=== PATIENT | female | born 1970 | race Caucasian/White ===

== ENCOUNTER 2018-01-05 14:15 | Inpatient (IN) | payer OTHER ==
[2018-01-05] MEDS: ONDANSETRON 4 MG INJ IV ×3 (14:49→18:19)
[2018-01-05] MEDS: ASPIRIN 325 MG TAB PO (14:49)
[2018-01-05] MEDS: HYDROmorphONE 1 MG/ML SYG IV ×4 (14:50→20:49)
[2018-01-05] MEDS: ALBUTEROL 0.083% (NEB) 2.5 MG/3 ML AMP INH (14:58)
[2018-01-05 15:44] LABS: ADD UMIC YES; UR ASCORBIC ACID NEGATIVE (NEGATIVE); UR BACTERIA MODERATE /HPF (NONE SEEN); UR BILIRUBIN (Dip) NEGATIVE (NEGATIVE); UR BLOOD (Dip) 1+ mg/dL (NEGATIVE); UR CLARITY CLOUDY (CLEAR); UR COLOR YELLOW (YELLOW); UR GLUCOSE (Dip) NEGATIVE (NEGATIVE); UR KETONES (Dip) NEGATIVE (NEGATIVE); UR LEUKOCYTE ESTERASE (Dip) TRACE Leu/ul (NEGATIVE); UR MUCUS FEW /HPF (NONE SEEN); UR NITRITE (Dip) NEGATIVE (NEGATIVE); UR RBC 7 /HPF (0-5); UR SPECIFIC GRAVITY (Dip) 1.015 (1.003-1.030); UR SQUAMOUS EPITHELIAL CELL FEW /HPF (FEW); UR TOTAL PROTEIN (Dip) NEGATIVE (NEGATIVE); UR UROBILINOGEN (Dip) 2+ mg/dL (NEGATIVE); UR WBC 4 /HPF (0-5)
[2018-01-05 15:52] LABS: ADD MAN DIFF? NO
[2018-01-05 15:55] LABS: BASOPHILS % 0.3 % (0.0-2.0); EOSINOPHILS # 0.1 10^3/ul (0.0-0.5); EOSINOPHILS % 0.7 % (0.0-7.0); HEMATOCRIT 24.9 % (37.0-47.0); HEMOGLOBIN 7.7 g/dl (12.0-16.0); LYMPHOCYTES # 1.1 10^3/ul (0.8-2.9); LYMPHOCYTES % 9.5 % (15.0-51.0); MEAN CORPUSCULAR HEMOGLOBIN 28.1 pg (29.0-33.0); MEAN CORPUSCULAR HGB CONC 30.9 g/dl (32.0-37.0); MEAN CORPUSCULAR VOLUME 90.9 fl (82.0-101.0); MEAN PLATELET VOLUME 10.6 fl (7.4-10.4); MONOCYTE # 0.1 10^3/ul (0.3-0.9); MONOCYTES % 1.2 % (0.0-11.0); NEUTROPHIL # 9.8 10^3/ul (1.6-7.5); NEUTROPHILS % 86.9 % (39.0-77.0); PLATELET COUNT 219 10^3/UL (140-415); RED BLOOD COUNT 2.74 10^6/ul (4.20-5.40); RED CELL DISTRIBUTION WIDTH 16.9 % (11.5-14.5)
[2018-01-05 15:55] LABS: WHITE BLOOD COUNT 11.3 10^3/ul (4.8-10.8)
[2018-01-05 16:18] LABS: ALANINE AMINOTRANSFERASE 23 IU/L (13-69); ALBUMIN/GLOBULIN RATIO 0.75; ALKALINE PHOSPHATASE 122 IU/L (42-121); ANION GAP 12 (8-16); ASPARTATE AMINO TRANSFERASE 29 IU/L (15-46); BILIRUBIN,INDIRECT 0.1 mg/dl (0-1.1); BILIRUBIN,TOTAL 0.1 mg/dl (0.2-1.3); BLOOD UREA NITROGEN 96 mg/dl (7-20); CARBON DIOXIDE 28 mmol/L (21-31); CHLORIDE 104 mmol/L (97-110); CREATININE 1.33 mg/dl (0.44-1.00); GLUCOSE 51 mg/dl (70-220); SODIUM 138 mmol/L (135-144)
[2018-01-05 16:27] LABS: B-TYPE NATRIURETIC PEPTIDE 475 PG/ML (0-125)
[2018-01-05 16:32] LABS: INR 1.18; PARTIAL THROMBOPLASTIN TIME 28.7 Sec (25.0-35.0); PROTIME 15.2 Sec (11.9-14.9); PT RATIO 1.2
[2018-01-05 16:35] LABS: TROPONIN-I < 0.012 ng/ml (0.00-0.12)
[2018-01-05 16:39] LABS: POTASSIUM 6.3 mmol/L (3.5-5.1)
[2018-01-05 17:02] LABS: D-DIMER 4198.41 ng/ml (<460)
[2018-01-05 18:20] LABS: POTASSIUM 6.2 mmol/L (3.5-5.1)
[2018-01-05] MEDS: NA POLYST SULFON 15 GM/60 ML BTL PO (18:27)
[2018-01-05] MEDS: SOD CHLORIDE 0.9% 100 ML (18:27)
[2018-01-05] MEDS: IODIXANOL LOCM 100 ML BTL (18:27)
[2018-01-05] MEDS: SOD CHLORIDE 0.9% 500 ML IV (18:27)
[2018-01-05] MEDS ORDERED: ONDANSETRON 4 MG INJ IV ×2 (19:00→21:00)
[2018-01-05] MEDS: SOD CHLORIDE 0.9% 1,000 ML IV ×2 (19:09→20:00)
[2018-01-05] MEDS: NA BICARBONATE 8.4% 50 ML SYG IV (19:13)
[2018-01-05] MEDS: DEXTROSE 50% 50 ML SYRINGE IV (19:13)
[2018-01-05] MEDS: INSULIN REGULAR, HUMAN 100 UNIT/1 ML 3ML VIAL IVP (19:14)
[2018-01-05] MEDS: SODIUM BICARBONATE (IV ADD) 100 MEQ in DEXTROSE 5% 900 ML IV (20:01)
[2018-01-05] MEDS: INSULIN ASPART [NOVOLOG] 3 ML PEN SC (21:00)
[2018-01-05] MEDS: SOD CHLORIDE 0.45% 1,000 ML IV (21:00)
[2018-01-05] MEDS ORDERED: BISACODYL (EC) 5 MG TAB PO (21:30)
[2018-01-05] MEDS: EPOETIN 10000 UNITS/ML VIAL (ONCOLOGY) SC (22:04)
[2018-01-05] MEDS: oxyCODONE 5 MG TAB PO (23:15)
[2018-01-06 00:24] LABS: ANION GAP 11 (8-16); BLOOD UREA NITROGEN 88 mg/dl (7-20); CALCIUM 8.5 mg/dl (8.4-10.2); CARBON DIOXIDE 30 mmol/L (21-31); CHLORIDE 104 mmol/L (97-110); GLUCOSE 83 mg/dl (70-220); POTASSIUM 5.7 mmol/L (3.5-5.1); SODIUM 139 mmol/L (135-144)
[2018-01-06] MEDS: HYDROmorphONE 0.5 MG/0.5 ML SYG IV ×6 (01:21→23:15)
[2018-01-06] MEDS: IPRATROPIUM (NEB) 0.5 MG/2.5 ML AMP HHN (04:47)
[2018-01-06] MEDS: ALBUTEROL/IPRATROPIUM (NEB) 3 ML AMP HHN (04:48)
[2018-01-06] MEDS: LEVOTHYROXINE 75 MCG TAB PO (07:54)
[2018-01-06] MEDS: INSULIN ASPART [NOVOLOG] 3 ML PEN SC ×4 (08:00→21:27)
[2018-01-06] MEDS ORDERED: morphine (ER) 30 MG TAB PO (09:00)
[2018-01-06] MEDS: ENOXAPARIN 30 MG/0.3 ML SYG SC (09:41)
[2018-01-06] MEDS: SALMETEROL/FLUTICASONE 250/50 INHA INH ×2 (09:41→21:26)
[2018-01-06] MEDS: SOD CHLORIDE 0.45% 1,000 ML IV (10:20)
[2018-01-06] MEDS: morphine (ER) 15 MG TAB PO ×2 (10:56→21:26)
[2018-01-06 11:27] LABS: ADD MAN DIFF? NO
[2018-01-06 11:33] LABS: BASOPHILS % 0.4 % (0.0-2.0); EOSINOPHILS # 0.1 10^3/ul (0.0-0.5); EOSINOPHILS % 0.9 % (0.0-7.0); HEMATOCRIT 25.6 % (37.0-47.0); HEMOGLOBIN 7.7 g/dl (12.0-16.0); LYMPHOCYTES # 0.8 10^3/ul (0.8-2.9); LYMPHOCYTES % 9.6 % (15.0-51.0); MEAN CORPUSCULAR HEMOGLOBIN 27.9 pg (29.0-33.0); MEAN CORPUSCULAR HGB CONC 30.1 g/dl (32.0-37.0); MEAN CORPUSCULAR VOLUME 92.8 fl (82.0-101.0); MEAN PLATELET VOLUME 10.2 fl (7.4-10.4); MONOCYTE # 0.1 10^3/ul (0.3-0.9); MONOCYTES % 1.7 % (0.0-11.0); NEUTROPHILS % 85.9 % (39.0-77.0); PLATELET COUNT 213 10^3/UL (140-415); RED BLOOD COUNT 2.76 10^6/ul (4.20-5.40); RED CELL DISTRIBUTION WIDTH 16.8 % (11.5-14.5)
[2018-01-06 11:33] LABS: WHITE BLOOD COUNT 8.2 10^3/ul (4.8-10.8)
[2018-01-06 12:02] LABS: ALANINE AMINOTRANSFERASE 19 IU/L (13-69); ALBUMIN 3.2 g/dl (3.3-4.9); ALBUMIN/GLOBULIN RATIO 0.82; ALKALINE PHOSPHATASE 124 IU/L (42-121); ANION GAP 14 (8-16); ASPARTATE AMINO TRANSFERASE 28 IU/L (15-46); BILIRUBIN,INDIRECT 0.1 mg/dl (0-1.1); BILIRUBIN,TOTAL 0.1 mg/dl (0.2-1.3); BLOOD UREA NITROGEN 79 mg/dl (7-20); CALCIUM 8.9 mg/dl (8.4-10.2); CARBON DIOXIDE 29 mmol/L (21-31); CHLORIDE 106 mmol/L (97-110); CREATININE 1.28 mg/dl (0.44-1.00); GLUCOSE 145 mg/dl (70-220); POTASSIUM 5.8 mmol/L (3.5-5.1); SODIUM 143 mmol/L (135-144); TOTAL PROTEIN 7.1 g/dl (6.1-8.1)
[2018-01-06 12:04] LABS: PHOSPHORUS 4.5 mg/dl (2.5-4.9)
[2018-01-06 12:04] LABS: CREATINE KINASE 31 IU/L (23-200)
[2018-01-06 12:06] LABS: URIC ACID 14.5 mg/dl (3.1-7.9)
[2018-01-06 12:16] LABS: HEMOGLOBIN A1C 5.2 % (0-5.9)
[2018-01-06] MEDS: FUROSEMIDE 40 MG INJ IV (13:00)
[2018-01-06 14:06] LABS: Allen Test ACCEPTAB; Arterial Base Excess 4.7 mmol/L (-3.0-3); Arterial Blood Gas Oxygen Sat 97.3 mmHG (95.0-98.0); Arterial COHb 0.1 % (0.0-3.0); Arterial Fraction of Oxyhgb 96.9 % (93.0-99.0); Arterial HCO3 29.5 mmol/L (22.0-26.0); Arterial MetHb 0.3 % (0.0-1.5); Arterial Total Hemglobin 10.2 g/dl (12.0-18.0); Arterial pCO2 44.9 mmhg (35-45); MODE NASAL CANNULA; Site Right Radial
[2018-01-06] MEDS: HEPARIN 5,000 UNIT/0.5 ML VIAL SC ×2 (15:09→21:28)
[2018-01-06] MEDS: oxyCODONE 5 MG TAB PO (17:15)
[2018-01-06 20:53] LABS: ANION GAP 15 (8-16); BLOOD UREA NITROGEN 78 mg/dl (7-20); CARBON DIOXIDE 27 mmol/L (21-31); CHLORIDE 107 mmol/L (97-110); CREATININE 1.21 mg/dl (0.44-1.00); GLUCOSE 182 mg/dl (70-220); POTASSIUM 5.5 mmol/L (3.5-5.1); SODIUM 143 mmol/L (135-144)
[2018-01-06] MEDS: NA POLYST SULFON 15 GM/60 ML BTL PO (21:29)
[2018-01-07] MEDS: oxyCODONE 5 MG TAB PO ×4 (02:42→20:24)
[2018-01-07] MEDS: HYDROmorphONE 0.5 MG/0.5 ML SYG IV ×3 (05:09→18:25)
[2018-01-07] MEDS: ALBUTEROL/IPRATROPIUM (NEB) 3 ML AMP HHN (05:25)
[2018-01-07] MEDS: HEPARIN 5,000 UNIT/0.5 ML VIAL SC ×3 (06:00→22:00)
[2018-01-07] MEDS: LEVOTHYROXINE 75 MCG TAB PO (07:21)
[2018-01-07 07:27] LABS: HEMATOCRIT 23.2 % (37.0-47.0); MEAN CORPUSCULAR HEMOGLOBIN 27.7 pg (29.0-33.0); MEAN CORPUSCULAR HGB CONC 30.2 g/dl (32.0-37.0); MEAN CORPUSCULAR VOLUME 91.7 fl (82.0-101.0); PLATELET COUNT 184 10^3/UL (140-415); RED BLOOD COUNT 2.53 10^6/ul (4.20-5.40); RED CELL DISTRIBUTION WIDTH 16.9 % (11.5-14.5)
[2018-01-07 07:27] LABS: WHITE BLOOD COUNT 5.4 10^3/ul (4.8-10.8)
[2018-01-07 07:30] LABS: ADD MAN DIFF? YES; POSITIVE DIFF @See below
[2018-01-07 07:52] LABS: MAGNESIUM 2.3 mg/dl (1.7-2.5)
[2018-01-07 07:54] LABS: ANION GAP 12 (8-16); BLOOD UREA NITROGEN 68 mg/dl (7-20); CALCIUM 8.8 mg/dl (8.4-10.2); CARBON DIOXIDE 29 mmol/L (21-31); CHLORIDE 108 mmol/L (97-110); CREATININE 0.99 mg/dl (0.44-1.00); GLUCOSE 150 mg/dl (70-220); POTASSIUM 5.1 mmol/L (3.5-5.1); SODIUM 144 mmol/L (135-144)
[2018-01-07] MEDS: SALMETEROL/FLUTICASONE 250/50 INHA INH ×2 (08:19→20:48)
[2018-01-07] MEDS: INSULIN ASPART [NOVOLOG] 3 ML PEN SC ×3 (08:26→20:38)
[2018-01-07] MEDS: morphine (ER) 15 MG TAB PO ×2 (08:27→22:38)
[2018-01-07 08:46] LABS: ANISOCYTOSIS 1+ (0-0); BAND NEUTROPHILS #M 0.2 10^3/ul (0.0-0.6); BAND NEUTROPHILS % (M) 4 % (0-4); EOSINOPHILS % (M) 1 % (0-7); LYMPHOCYTES #M 0.9 10^3/ul (0.8-2.9); LYMPHOCYTES % (M) 18 % (15-51); MICROCYTOSIS 1+ (0-0); PLATELET ESTIMATE NORMAL; POLYCHROMASIA 2+ (0-0); REACTIVE LYMPHOCYTES% (M) 1 % (0-0); SEG NEUT #M 4.1 10^3/ul (1.6-7.5); SEGMENTED NEUTROPHILS (M) % 76 % (39-77); SMUDGE%M 5 % (0-0)
[2018-01-07 09:03] LABS: SODIUM,URINE RANDOM 19 mmol/L (30-90)
[2018-01-07] MEDS ORDERED: VANCOMYCIN IV PER PHARMACY XX (10:30)
[2018-01-07] MEDS ORDERED: GLUCOSE GEL 15 GRAM TUBE BUCCAL (12:00)
[2018-01-07] MEDS ORDERED: DEXTROSE 50% 50 ML SYRINGE IV ×2 (12:00)
[2018-01-07] MEDS ORDERED: GLUCAGON 1 MG INJ IM (12:00)
[2018-01-07] MEDS ORDERED: GLUCOSE GEL 15 GRAM TUBE PO ×2 (12:00)
[2018-01-07 12:35] LABS: LACTIC ACID 2.1 mmol/L (0.5-2.0)
[2018-01-07] MEDS: VANCOMYCIN 1.75 GM in D5W 500 ML IVPB (12:56)
[2018-01-07] MEDS: MEROPENEM 1 GM/50ML(PMX) 50 ML IVPB ×2 (14:34→23:51)
[2018-01-07] MEDS: SOD CHLORIDE 0.9% 500 ML IV (15:45)
[2018-01-07 19:48] LABS: ADD UMIC YES; UR ASCORBIC ACID 20 mg/dL (NEGATIVE); UR BACTERIA FEW /HPF (NONE SEEN); UR BILIRUBIN (Dip) NEGATIVE (NEGATIVE); UR BLOOD (Dip) NEGATIVE (NEGATIVE); UR CLARITY SLIGHTLY CLOUDY (CLEAR); UR COLOR YELLOW (YELLOW); UR GLUCOSE (Dip) NEGATIVE (NEGATIVE); UR KETONES (Dip) NEGATIVE (NEGATIVE); UR LEUKOCYTE ESTERASE (Dip) 1+ Leu/ul (NEGATIVE); UR MUCUS FEW /HPF (NONE SEEN); UR NITRITE (Dip) NEGATIVE (NEGATIVE); UR RBC 3 /HPF (0-5); UR SPECIFIC GRAVITY (Dip) 1.019 (1.003-1.030); UR SQUAMOUS EPITHELIAL CELL MODERATE /HPF (FEW); UR TOTAL PROTEIN (Dip) NEGATIVE (NEGATIVE); UR UROBILINOGEN (Dip) 1+ mg/dL (NEGATIVE); UR WBC 7 /HPF (0-5)
[2018-01-07] MEDS: ALBUMIN HUMAN 25% 50 ML IV (20:47)
[2018-01-07] MEDS: RASBURICASE IVPB (22:30)
[2018-01-07] MEDS: SOD CHLORIDE 0.9% IVPB (22:30)
[2018-01-08] MEDS ORDERED: VANCOMYCIN 750 MG in DEXTROSE 5% 150 ML IVPB
[2018-01-08] MEDS: VANCOMYCIN 1 GM 250 ML IVPB (01:20)
[2018-01-08] MEDS: HYDROmorphONE 0.5 MG/0.5 ML SYG IV ×5 (01:35→23:58)
[2018-01-08] MEDS: MEROPENEM 1 GM/50ML(PMX) 50 ML IVPB ×3 (05:44→21:32)
[2018-01-08 05:48] LABS: ADD MAN DIFF? NO
[2018-01-08] MEDS: HEPARIN 5,000 UNIT/0.5 ML VIAL SC ×3 (05:52→21:39)
[2018-01-08 05:56] LABS: BASOPHILS % 0.5 % (0.0-2.0); EOSINOPHILS # 0.1 10^3/ul (0.0-0.5); HEMATOCRIT 24.3 % (37.0-47.0); HEMOGLOBIN 7.2 g/dl (12.0-16.0); LYMPHOCYTES # 0.7 10^3/ul (0.8-2.9); LYMPHOCYTES % 18.3 % (15.0-51.0); MEAN CORPUSCULAR HEMOGLOBIN 27.8 pg (29.0-33.0); MEAN CORPUSCULAR HGB CONC 29.6 g/dl (32.0-37.0); MEAN CORPUSCULAR VOLUME 93.8 fl (82.0-101.0); MEAN PLATELET VOLUME 10.5 fl (7.4-10.4); MONOCYTE # 0.2 10^3/ul (0.3-0.9); NEUTROPHIL # 2.9 10^3/ul (1.6-7.5); NEUTROPHILS % 72.2 % (39.0-77.0); PLATELET COUNT 185 10^3/UL (140-415); RED BLOOD COUNT 2.59 10^6/ul (4.20-5.40); RED CELL DISTRIBUTION WIDTH 16.7 % (11.5-14.5)
[2018-01-08 06:21] LABS: URIC ACID < 0.5 mg/dl (3.1-7.9)
[2018-01-08 06:23] LABS: ALANINE AMINOTRANSFERASE 22 IU/L (13-69); ALBUMIN 2.7 g/dl (3.3-4.9); ALBUMIN/GLOBULIN RATIO 0.77; ALKALINE PHOSPHATASE 95 IU/L (42-121); ANION GAP 11 (8-16); ASPARTATE AMINO TRANSFERASE 19 IU/L (15-46); BILIRUBIN,INDIRECT 0.1 mg/dl (0-1.1); BILIRUBIN,TOTAL 0.1 mg/dl (0.2-1.3); BLOOD UREA NITROGEN 45 mg/dl (7-20); CALCIUM 8.7 mg/dl (8.4-10.2); CARBON DIOXIDE 30 mmol/L (21-31); CHLORIDE 109 mmol/L (97-110); CREATININE 0.67 mg/dl (0.44-1.00); GLUCOSE 116 mg/dl (70-220); SODIUM 145 mmol/L (135-144); TOTAL PROTEIN 6.2 g/dl (6.1-8.1)
[2018-01-08] MEDS: LEVOTHYROXINE 75 MCG TAB PO (06:30)
[2018-01-08] MEDS: INSULIN ASPART [NOVOLOG] 3 ML PEN SC ×4 (07:35→21:06)
[2018-01-08] MEDS: SALMETEROL/FLUTICASONE 250/50 INHA INH ×2 (08:03→20:58)
[2018-01-08 08:17] LABS: HEMOGLOBIN A1C 5.4 % (0-5.9)
[2018-01-08 08:33] LABS: LACTIC ACID 1.6 mmol/L (0.5-2.0)
[2018-01-08] MEDS: morphine (ER) 15 MG TAB PO ×2 (09:00→21:00)
[2018-01-08] MEDS: VANCOMYCIN 1.25 GM in DEXTROSE 5% 250 ML IVPB ×2 (12:53→23:58)
[2018-01-08 13:59] LABS: IMMEDIATE SPIN CROSSMATCH 1 1
[2018-01-08] MEDS: SOD CHLORIDE 0.45% 1,000 ML IV (15:59)
[2018-01-08] MEDS: LEVALBUTEROL (NEB) 0.63 MG/3 ML AMP HHN (17:11)
[2018-01-09] MEDS: HYDROmorphONE 0.5 MG/0.5 ML SYG IV ×5 (03:53→21:48)
[2018-01-09 04:58] LABS: ADD MAN DIFF? NO
[2018-01-09] MEDS: oxyCODONE 5 MG TAB PO ×4 (05:00→20:18)
[2018-01-09 05:03] LABS: BASOPHILS % 0.5 % (0.0-2.0); EOSINOPHILS # 0.1 10^3/ul (0.0-0.5); EOSINOPHILS % 1.9 % (0.0-7.0); HEMATOCRIT 27.8 % (37.0-47.0); HEMOGLOBIN 8.3 g/dl (12.0-16.0); LYMPHOCYTES # 0.7 10^3/ul (0.8-2.9); MEAN CORPUSCULAR HEMOGLOBIN 27.9 pg (29.0-33.0); MEAN CORPUSCULAR HGB CONC 29.9 g/dl (32.0-37.0); MEAN CORPUSCULAR VOLUME 93.6 fl (82.0-101.0); MEAN PLATELET VOLUME 10.4 fl (7.4-10.4); MONOCYTE # 0.3 10^3/ul (0.3-0.9); MONOCYTES % 8.3 % (0.0-11.0); NEUTROPHIL # 2.6 10^3/ul (1.6-7.5); NEUTROPHILS % 70.2 % (39.0-77.0); PLATELET COUNT 197 10^3/UL (140-415); RED BLOOD COUNT 2.97 10^6/ul (4.20-5.40); RED CELL DISTRIBUTION WIDTH 16.3 % (11.5-14.5)
[2018-01-09 05:03] LABS: WHITE BLOOD COUNT 3.7 10^3/ul (4.8-10.8)
[2018-01-09 05:46] LABS: ANION GAP 9 (8-16); CALCIUM 8.8 mg/dl (8.4-10.2); CARBON DIOXIDE 30 mmol/L (21-31); CHLORIDE 109 mmol/L (97-110); GLUCOSE 142 mg/dl (70-220); POTASSIUM 4.4 mmol/L (3.5-5.1); SODIUM 144 mmol/L (135-144)
[2018-01-09 05:54] LABS: BLOOD UREA NITROGEN 26 mg/dl (7-20)
[2018-01-09] MEDS: HEPARIN 5,000 UNIT/0.5 ML VIAL SC ×3 (06:00→21:55)
[2018-01-09] MEDS: SOD CHLORIDE 0.45% 1,000 ML IV (06:30)
[2018-01-09] MEDS: MEROPENEM 1 GM/50ML(PMX) 50 ML IVPB ×3 (06:40→21:48)
[2018-01-09] MEDS: LEVOTHYROXINE 75 MCG TAB PO (06:40)
[2018-01-09] MEDS: INSULIN ASPART [NOVOLOG] 3 ML PEN SC ×4 (07:35→21:00)
[2018-01-09] MEDS: morphine (ER) 15 MG TAB PO ×2 (09:22→21:08)
[2018-01-09] MEDS: SALMETEROL/FLUTICASONE 250/50 INHA INH ×2 (09:23→20:19)
[2018-01-09] MEDS: LEVALBUTEROL (NEB) 0.63 MG/3 ML AMP HHN ×2 (11:31→18:36)
[2018-01-09 12:41] LABS: VANCOMYCIN,TROUGH 10.5 ug/ml (10.0-20.0)
[2018-01-09] MEDS: VANCOMYCIN 1.25 GM in DEXTROSE 5% 250 ML IVPB (13:14)
[2018-01-09] MEDS: NYSTATIN 30 GM POWDER BTL TOP (20:18)
[2018-01-09] MEDS ORDERED: VANCOMYCIN 1.5 GM in SOD CHLORIDE 0.9% 250 ML IVPB (23:00)
[2018-01-10] MEDS: HYDROmorphONE 0.5 MG/0.5 ML SYG IV ×6 (02:46→23:08)
[2018-01-10] MEDS: MEROPENEM 1 GM/50ML(PMX) 50 ML IVPB ×3 (05:46→21:28)
[2018-01-10] MEDS: oxyCODONE 5 MG TAB PO (05:46)
[2018-01-10] MEDS: HEPARIN 5,000 UNIT/0.5 ML VIAL SC ×3 (06:19→21:11)
[2018-01-10] MEDS: LEVOTHYROXINE 75 MCG TAB PO (07:06)
[2018-01-10] MEDS: INSULIN ASPART [NOVOLOG] 3 ML PEN SC ×4 (07:42→21:00)
[2018-01-10] MEDS: LEVALBUTEROL (NEB) 0.63 MG/3 ML AMP HHN ×3 (08:41→21:21)
[2018-01-10] MEDS: SALMETEROL/FLUTICASONE 250/50 INHA INH ×2 (09:21→21:04)
[2018-01-10] MEDS: NYSTATIN 30 GM POWDER BTL TOP ×2 (09:22→21:05)
[2018-01-10] MEDS: morphine (ER) 15 MG TAB PO ×2 (09:22→21:05)
[2018-01-10 14:47] LABS: PROCALCITONIN 0.62 ng/mL (<0.10)
[2018-01-11] MEDS: HYDROmorphONE 0.5 MG/0.5 ML SYG IV ×5 (03:17→20:00)
[2018-01-11] MEDS: MEROPENEM 1 GM/50ML(PMX) 50 ML IVPB ×3 (05:38→23:10)
[2018-01-11] MEDS: HEPARIN 5,000 UNIT/0.5 ML VIAL SC ×3 (05:49→23:26)
[2018-01-11] MEDS: LEVOTHYROXINE 75 MCG TAB PO (06:29)
[2018-01-11 07:00] LABS: ADD MAN DIFF? NO
[2018-01-11 07:06] LABS: BASOPHILS % 0.8 % (0.0-2.0); EOSINOPHILS # 0.1 10^3/ul (0.0-0.5); EOSINOPHILS % 2.9 % (0.0-7.0); HEMATOCRIT 29.1 % (37.0-47.0); HEMOGLOBIN 8.8 g/dl (12.0-16.0); LYMPHOCYTES # 0.7 10^3/ul (0.8-2.9); MEAN CORPUSCULAR HEMOGLOBIN 28.7 pg (29.0-33.0); MEAN CORPUSCULAR HGB CONC 30.2 g/dl (32.0-37.0); MEAN CORPUSCULAR VOLUME 94.8 fl (82.0-101.0); MONOCYTE # 0.4 10^3/ul (0.3-0.9); MONOCYTES % 16.5 % (0.0-11.0); NEUTROPHIL # 1.2 10^3/ul (1.6-7.5); PLATELET COUNT 188 10^3/UL (140-415); RED BLOOD COUNT 3.07 10^6/ul (4.20-5.40); RED CELL DISTRIBUTION WIDTH 17.2 % (11.5-14.5)
[2018-01-11 07:06] LABS: WHITE BLOOD COUNT 2.4 10^3/ul (4.8-10.8)
[2018-01-11 07:24] LABS: ANION GAP 10 (8-16); BLOOD UREA NITROGEN 18 mg/dl (7-20); CALCIUM 8.7 mg/dl (8.4-10.2); CARBON DIOXIDE 29 mmol/L (21-31); CHLORIDE 109 mmol/L (97-110); CREATININE 0.53 mg/dl (0.44-1.00); GLUCOSE 122 mg/dl (70-220); POTASSIUM 4.2 mmol/L (3.5-5.1); SODIUM 144 mmol/L (135-144)
[2018-01-11] MEDS: morphine (ER) 15 MG TAB PO ×2 (08:37→20:04)
[2018-01-11] MEDS: SALMETEROL/FLUTICASONE 250/50 INHA INH ×2 (08:37→20:06)
[2018-01-11] MEDS: NYSTATIN 30 GM POWDER BTL TOP ×3 (08:38→20:07)
[2018-01-11] MEDS: INSULIN ASPART [NOVOLOG] 3 ML PEN SC ×4 (08:42→20:12)
[2018-01-11] MEDS: LEVALBUTEROL (NEB) 0.63 MG/3 ML AMP HHN ×2 (09:18→23:24)
[2018-01-12] MEDS: HYDROmorphONE 0.5 MG/0.5 ML SYG IV ×6 (00:12→19:49)
[2018-01-12] MEDS: HEPARIN 5,000 UNIT/0.5 ML VIAL SC ×3 (06:00→21:50)
[2018-01-12] MEDS: LEVOTHYROXINE 75 MCG TAB PO (06:02)
[2018-01-12] MEDS: MEROPENEM 1 GM/50ML(PMX) 50 ML IVPB ×3 (06:02→21:46)
[2018-01-12 06:41] LABS: ADD MAN DIFF? NO
[2018-01-12 06:50] LABS: BASOPHILS % 0.4 % (0.0-2.0); EOSINOPHILS # 0.1 10^3/ul (0.0-0.5); HEMOGLOBIN 8.7 g/dl (12.0-16.0); LYMPHOCYTES # 0.8 10^3/ul (0.8-2.9); LYMPHOCYTES % 31.6 % (15.0-51.0); MEAN CORPUSCULAR HEMOGLOBIN 28.3 pg (29.0-33.0); MEAN CORPUSCULAR VOLUME 94.5 fl (82.0-101.0); MEAN PLATELET VOLUME 10.3 fl (7.4-10.4); MONOCYTE # 0.5 10^3/ul (0.3-0.9); MONOCYTES % 20.9 % (0.0-11.0); NEUTROPHIL # 1.1 10^3/ul (1.6-7.5); NEUTROPHILS % 44.7 % (39.0-77.0); PLATELET COUNT 207 10^3/UL (140-415); RED BLOOD COUNT 3.07 10^6/ul (4.20-5.40); RED CELL DISTRIBUTION WIDTH 17.3 % (11.5-14.5)
[2018-01-12 06:50] LABS: WHITE BLOOD COUNT 2.4 10^3/ul (4.8-10.8)
[2018-01-12 07:37] LABS: ANION GAP 12 (8-16); BLOOD UREA NITROGEN 15 mg/dl (7-20); CALCIUM 8.5 mg/dl (8.4-10.2); CARBON DIOXIDE 31 mmol/L (21-31); CHLORIDE 109 mmol/L (97-110); CREATININE 0.56 mg/dl (0.44-1.00); GLUCOSE 137 mg/dl (70-220); POTASSIUM 4.1 mmol/L (3.5-5.1); SODIUM 148 mmol/L (135-144)
[2018-01-12] MEDS: INSULIN ASPART [NOVOLOG] 3 ML PEN SC ×4 (07:55→21:00)
[2018-01-12] MEDS: SALMETEROL/FLUTICASONE 250/50 INHA INH ×2 (08:12→21:46)
[2018-01-12] MEDS: NYSTATIN 30 GM POWDER BTL TOP ×2 (08:12→21:47)
[2018-01-12] MEDS: LEVALBUTEROL (NEB) 0.63 MG/3 ML AMP HHN ×3 (09:37→23:30)
[2018-01-12] MEDS: morphine (ER) 15 MG TAB PO ×2 (11:25→21:47)
[2018-01-12] MEDS: VITAMIN A & D 5 GM OINT PACKET TOP ×2 (11:25→21:47)
[2018-01-13] MEDS: HYDROmorphONE 0.5 MG/0.5 ML SYG IV ×6 (00:04→20:08)
[2018-01-13] MEDS: MEROPENEM 1 GM/50ML(PMX) 50 ML IVPB ×3 (06:14→21:46)
[2018-01-13] MEDS: LEVOTHYROXINE 75 MCG TAB PO (06:14)
[2018-01-13] MEDS: HEPARIN 5,000 UNIT/0.5 ML VIAL SC ×3 (06:36→21:50)
[2018-01-13 07:08] LABS: ADD MAN DIFF? NO
[2018-01-13 07:11] LABS: BASOPHILS % 1.1 % (0.0-2.0); EOSINOPHILS % 1.4 % (0.0-7.0); HEMATOCRIT 30.7 % (37.0-47.0); HEMOGLOBIN 8.9 g/dl (12.0-16.0); LYMPHOCYTES # 0.9 10^3/ul (0.8-2.9); LYMPHOCYTES % 31.2 % (15.0-51.0); MEAN CORPUSCULAR VOLUME 96.5 fl (82.0-101.0); MEAN PLATELET VOLUME 10.8 fl (7.4-10.4); MONOCYTE # 0.7 10^3/ul (0.3-0.9); MONOCYTES % 26.1 % (0.0-11.0); NEUTROPHIL # 1.1 10^3/ul (1.6-7.5); NEUTROPHILS % 40.2 % (39.0-77.0); PLATELET COUNT 233 10^3/UL (140-415); RED BLOOD COUNT 3.18 10^6/ul (4.20-5.40); RED CELL DISTRIBUTION WIDTH 17.2 % (11.5-14.5)
[2018-01-13 07:11] LABS: WHITE BLOOD COUNT 2.8 10^3/ul (4.8-10.8)
[2018-01-13 07:34] LABS: ANION GAP 12 (8-16); BLOOD UREA NITROGEN 14 mg/dl (7-20); CALCIUM 8.6 mg/dl (8.4-10.2); CARBON DIOXIDE 33 mmol/L (21-31); CHLORIDE 108 mmol/L (97-110); CREATININE 0.57 mg/dl (0.44-1.00); GLUCOSE 118 mg/dl (70-220); POTASSIUM 4.2 mmol/L (3.5-5.1); SODIUM 149 mmol/L (135-144)
[2018-01-13] MEDS: INSULIN ASPART [NOVOLOG] 3 ML PEN SC ×4 (07:55→21:00)
[2018-01-13] MEDS: NYSTATIN 30 GM POWDER BTL TOP ×2 (08:07→21:46)
[2018-01-13] MEDS: VITAMIN A & D 5 GM OINT PACKET TOP ×2 (08:07→21:46)
[2018-01-13] MEDS: SALMETEROL/FLUTICASONE 250/50 INHA INH ×2 (08:15→21:45)
[2018-01-13] MEDS: LEVALBUTEROL (NEB) 0.63 MG/3 ML AMP HHN ×2 (09:14→15:02)
[2018-01-13] MEDS: morphine (ER) 15 MG TAB PO ×2 (10:03→21:00)
[2018-01-13 16:42] LABS: AADO2 Arterial 46.1 mmHg (7.0-24.0); Allen Test ACCEPTAB; Arterial Base Excess 6.2 mmol/L (-3.0-3); Arterial COHb 0.5 % (0.0-3.0); Arterial Fraction of Oxyhgb 83.4 % (93.0-99.0); Arterial HCO3 30.9 mmol/L (22.0-26.0); Arterial MetHb 0.2 % (0.0-1.5); Arterial Total Hemglobin 10.5 g/dl (12.0-18.0); Arterial pCO2 45.3 mmhg (35-45); MODE ROOM AIR; Site Left Radial
[2018-01-14] MEDS: HYDROmorphONE 0.5 MG/0.5 ML SYG IV ×6 (00:13→20:29)
[2018-01-14] MEDS: HEPARIN 5,000 UNIT/0.5 ML VIAL SC ×3 (06:00→20:34)
[2018-01-14 06:35] LABS: ADD MAN DIFF? NO
[2018-01-14 06:40] LABS: BASOPHILS % 0.9 % (0.0-2.0); EOSINOPHILS % 0.9 % (0.0-7.0); HEMATOCRIT 29.6 % (37.0-47.0); HEMOGLOBIN 9.2 g/dl (12.0-16.0); LYMPHOCYTES # 0.9 10^3/ul (0.8-2.9); LYMPHOCYTES % 28.7 % (15.0-51.0); MEAN CORPUSCULAR HEMOGLOBIN 29.3 pg (29.0-33.0); MEAN CORPUSCULAR HGB CONC 31.1 g/dl (32.0-37.0); MEAN CORPUSCULAR VOLUME 94.3 fl (82.0-101.0); MEAN PLATELET VOLUME 10.9 fl (7.4-10.4); MONOCYTE # 0.8 10^3/ul (0.3-0.9); MONOCYTES % 25.2 % (0.0-11.0); NEUTROPHIL # 1.4 10^3/ul (1.6-7.5); PLATELET COUNT 240 10^3/UL (140-415); RED BLOOD COUNT 3.14 10^6/ul (4.20-5.40); RED CELL DISTRIBUTION WIDTH 17.1 % (11.5-14.5)
[2018-01-14 06:40] LABS: WHITE BLOOD COUNT 3.2 10^3/ul (4.8-10.8)
[2018-01-14] MEDS: MEROPENEM 1 GM/50ML(PMX) 50 ML IVPB ×3 (06:47→20:30)
[2018-01-14] MEDS: LEVOTHYROXINE 75 MCG TAB PO (06:47)
[2018-01-14 07:03] LABS: ANION GAP 10 (8-16); BLOOD UREA NITROGEN 13 mg/dl (7-20); CARBON DIOXIDE 31 mmol/L (21-31); CHLORIDE 107 mmol/L (97-110); CREATININE 0.52 mg/dl (0.44-1.00); GLUCOSE 165 mg/dl (70-220); POTASSIUM 3.9 mmol/L (3.5-5.1); SODIUM 144 mmol/L (135-144)
[2018-01-14] MEDS: INSULIN ASPART [NOVOLOG] 3 ML PEN SC ×4 (07:55→21:00)
[2018-01-14] MEDS: NYSTATIN 30 GM POWDER BTL TOP ×2 (09:00→20:28)
[2018-01-14] MEDS: morphine (ER) 15 MG TAB PO ×2 (09:00→20:28)
[2018-01-14] MEDS: SALMETEROL/FLUTICASONE 250/50 INHA INH ×2 (09:00→20:27)
[2018-01-14] MEDS: VITAMIN A & D 5 GM OINT PACKET TOP ×2 (09:00→20:29)
[2018-01-14] MEDS: LEVALBUTEROL (NEB) 0.63 MG/3 ML AMP HHN ×3 (10:13→19:51)
[2018-01-14] MEDS: FUROSEMIDE 20 MG INJ IV (10:38)
[2018-01-15] MEDS: HYDROmorphONE 0.5 MG/0.5 ML SYG IV ×6 (00:31→20:29)
[2018-01-15] MEDS: ZOLPIDEM 5 MG TAB PO (00:31)
[2018-01-15] MEDS: LEVALBUTEROL (NEB) 0.63 MG/3 ML AMP HHN (02:37)
[2018-01-15] MEDS: MEROPENEM 1 GM/50ML(PMX) 50 ML IVPB ×3 (06:03→22:01)
[2018-01-15] MEDS: LEVOTHYROXINE 75 MCG TAB PO (06:04)
[2018-01-15] MEDS: HEPARIN 5,000 UNIT/0.5 ML VIAL SC ×3 (06:13→21:57)
[2018-01-15 06:59] LABS: ADD MAN DIFF? NO
[2018-01-15 07:06] LABS: EOSINOPHILS % 0.5 % (0.0-7.0); HEMATOCRIT 30.2 % (37.0-47.0); HEMOGLOBIN 9.1 g/dl (12.0-16.0); LYMPHOCYTES # 1.1 10^3/ul (0.8-2.9); LYMPHOCYTES % 28.1 % (15.0-51.0); MEAN CORPUSCULAR HEMOGLOBIN 28.2 pg (29.0-33.0); MEAN CORPUSCULAR HGB CONC 30.1 g/dl (32.0-37.0); MEAN CORPUSCULAR VOLUME 93.5 fl (82.0-101.0); MEAN PLATELET VOLUME 10.8 fl (7.4-10.4); MONOCYTE # 1.1 10^3/ul (0.3-0.9); NEUTROPHIL # 1.7 10^3/ul (1.6-7.5); NEUTROPHILS % 43.7 % (39.0-77.0); PLATELET COUNT 254 10^3/UL (140-415); RED BLOOD COUNT 3.23 10^6/ul (4.20-5.40); RED CELL DISTRIBUTION WIDTH 16.9 % (11.5-14.5)
[2018-01-15 07:15] LABS: MONOCYTES % 26.4 % (0.0-11.0)
[2018-01-15 07:33] LABS: ANION GAP 8 (8-16); BLOOD UREA NITROGEN 14 mg/dl (7-20); CALCIUM 8.8 mg/dl (8.4-10.2); CARBON DIOXIDE 35 mmol/L (21-31); CHLORIDE 106 mmol/L (97-110); CREATININE 0.52 mg/dl (0.44-1.00); GLUCOSE 129 mg/dl (70-220); POTASSIUM 3.6 mmol/L (3.5-5.1); SODIUM 145 mmol/L (135-144)
[2018-01-15] MEDS: FUROSEMIDE 20 MG INJ IV (08:13)
[2018-01-15] MEDS: NYSTATIN 30 GM POWDER BTL TOP ×2 (08:13→21:39)
[2018-01-15] MEDS: VITAMIN A & D 5 GM OINT PACKET TOP ×2 (08:13→21:00)
[2018-01-15] MEDS: SALMETEROL/FLUTICASONE 250/50 INHA INH (08:16)
[2018-01-15] MEDS: INSULIN ASPART [NOVOLOG] 3 ML PEN SC ×4 (08:35→21:00)
[2018-01-15] MEDS: morphine (ER) 15 MG TAB PO ×2 (10:06→21:39)
[2018-01-16] MEDS: HYDROmorphONE 0.5 MG/0.5 ML SYG IV ×6 (00:33→20:28)
[2018-01-16] MEDS: LEVOTHYROXINE 75 MCG TAB PO (05:39)
[2018-01-16] MEDS: MEROPENEM 1 GM/50ML(PMX) 50 ML IVPB ×3 (05:39→20:20)
[2018-01-16] MEDS: HEPARIN 5,000 UNIT/0.5 ML VIAL SC ×3 (05:46→20:29)
[2018-01-16] MEDS: LEVALBUTEROL (NEB) 0.63 MG/3 ML AMP HHN ×5 (05:54→23:08)
[2018-01-16 06:52] LABS: ADD MAN DIFF? NO
[2018-01-16 07:14] LABS: WHITE BLOOD COUNT 4.5 10^3/ul (4.8-10.8)
[2018-01-16 07:14] LABS: BASOPHILS % 0.7 % (0.0-2.0); EOSINOPHILS % 0.4 % (0.0-7.0); HEMATOCRIT 30.6 % (37.0-47.0); HEMOGLOBIN 9.1 g/dl (12.0-16.0); LYMPHOCYTES # 1.2 10^3/ul (0.8-2.9); LYMPHOCYTES % 26.7 % (15.0-51.0); MEAN CORPUSCULAR HEMOGLOBIN 27.9 pg (29.0-33.0); MEAN CORPUSCULAR HGB CONC 29.7 g/dl (32.0-37.0); MEAN CORPUSCULAR VOLUME 93.9 fl (82.0-101.0); MEAN PLATELET VOLUME 11.3 fl (7.4-10.4); MONOCYTE # 1.1 10^3/ul (0.3-0.9); MONOCYTES % 24.2 % (0.0-11.0); NEUTROPHIL # 2.2 10^3/ul (1.6-7.5); NEUTROPHILS % 47.6 % (39.0-77.0); PLATELET COUNT 261 10^3/UL (140-415); RED BLOOD COUNT 3.26 10^6/ul (4.20-5.40); RED CELL DISTRIBUTION WIDTH 17.3 % (11.5-14.5)
[2018-01-16 07:48] LABS: ANION GAP 14 (8-16); BLOOD UREA NITROGEN 15 mg/dl (7-20); CALCIUM 8.5 mg/dl (8.4-10.2); CARBON DIOXIDE 35 mmol/L (21-31); CHLORIDE 105 mmol/L (97-110); CREATININE 0.53 mg/dl (0.44-1.00); GLUCOSE 120 mg/dl (70-220); POTASSIUM 3.8 mmol/L (3.5-5.1); SODIUM 150 mmol/L (135-144)
[2018-01-16] MEDS: INSULIN ASPART [NOVOLOG] 3 ML PEN SC ×4 (07:55→20:36)
[2018-01-16] MEDS: morphine (ER) 15 MG TAB PO ×2 (08:09→20:19)
[2018-01-16] MEDS: NYSTATIN 30 GM POWDER BTL TOP ×2 (08:10→20:20)
[2018-01-16] MEDS: VITAMIN A & D 5 GM OINT PACKET TOP ×2 (08:10→20:20)
[2018-01-16] MEDS: FUROSEMIDE 20 MG INJ IV (08:10)
[2018-01-17] MEDS: HYDROmorphONE 0.5 MG/0.5 ML SYG IV ×6 (00:25→20:32)
[2018-01-17] MEDS: LEVALBUTEROL (NEB) 0.63 MG/3 ML AMP HHN ×5 (03:32→20:01)
[2018-01-17] MEDS: LEVOTHYROXINE 75 MCG TAB PO (05:29)
[2018-01-17] MEDS: MEROPENEM 1 GM/50ML(PMX) 50 ML IVPB (05:29)
[2018-01-17] MEDS: HEPARIN 5,000 UNIT/0.5 ML VIAL SC ×3 (05:42→20:43)
[2018-01-17 07:10] LABS: ADD MAN DIFF? NO; BASOPHILS % 0.6 % (0.0-2.0); EOSINOPHILS % 0.4 % (0.0-7.0); HEMATOCRIT 30.2 % (37.0-47.0); HEMOGLOBIN 9.1 g/dl (12.0-16.0); LYMPHOCYTES # 1.3 10^3/ul (0.8-2.9); MEAN CORPUSCULAR HEMOGLOBIN 28.2 pg (29.0-33.0); MEAN CORPUSCULAR HGB CONC 30.1 g/dl (32.0-37.0); MEAN CORPUSCULAR VOLUME 93.5 fl (82.0-101.0); MEAN PLATELET VOLUME 10.9 fl (7.4-10.4); MONOCYTE # 1.1 10^3/ul (0.3-0.9); NEUTROPHIL # 2.8 10^3/ul (1.6-7.5); NEUTROPHILS % 53.4 % (39.0-77.0); PLATELET COUNT 248 10^3/UL (140-415); RED BLOOD COUNT 3.23 10^6/ul (4.20-5.40); RED CELL DISTRIBUTION WIDTH 17.2 % (11.5-14.5)
[2018-01-17 07:10] LABS: WHITE BLOOD COUNT 5.2 10^3/ul (4.8-10.8)
[2018-01-17 07:34] LABS: ANION GAP 12 (8-16); BLOOD UREA NITROGEN 17 mg/dl (7-20); CALCIUM 8.3 mg/dl (8.4-10.2); CARBON DIOXIDE 37 mmol/L (21-31); CHLORIDE 103 mmol/L (97-110); CREATININE 0.48 mg/dl (0.44-1.00); GLUCOSE 111 mg/dl (70-220); POTASSIUM 3.8 mmol/L (3.5-5.1); SODIUM 148 mmol/L (135-144)
[2018-01-17] MEDS: INSULIN ASPART [NOVOLOG] 3 ML PEN SC ×4 (07:55→20:33)
[2018-01-17] MEDS: morphine (ER) 15 MG TAB PO ×2 (08:08→20:39)
[2018-01-17] MEDS: NYSTATIN 30 GM POWDER BTL TOP ×2 (08:09→20:33)
[2018-01-17] MEDS: VITAMIN A & D 5 GM OINT PACKET TOP ×2 (08:09→20:32)
[2018-01-17] MEDS ORDERED: LEVALBUTEROL (NEB) 0.63 MG/3 ML AMP (15:34)
[2018-01-18] MEDS: HYDROmorphONE 0.5 MG/0.5 ML SYG IV ×6 (00:26→21:36)
[2018-01-18] MEDS: LEVALBUTEROL (NEB) 0.63 MG/3 ML AMP HHN ×6 (00:29→20:15)
[2018-01-18] MEDS: LEVOTHYROXINE 75 MCG TAB PO ×2 (06:12→08:28)
[2018-01-18] MEDS: HEPARIN 5,000 UNIT/0.5 ML VIAL SC ×3 (06:34→21:04)
[2018-01-18 07:19] LABS: ADD MAN DIFF? NO
[2018-01-18 07:31] LABS: BASOPHILS % 0.7 % (0.0-2.0); EOSINOPHILS % 0.7 % (0.0-7.0); HEMATOCRIT 29.2 % (37.0-47.0); HEMOGLOBIN 8.8 g/dl (12.0-16.0); LYMPHOCYTES # 1.2 10^3/ul (0.8-2.9); LYMPHOCYTES % 20.9 % (15.0-51.0); MEAN CORPUSCULAR HEMOGLOBIN 28.2 pg (29.0-33.0); MEAN CORPUSCULAR HGB CONC 30.1 g/dl (32.0-37.0); MEAN CORPUSCULAR VOLUME 93.6 fl (82.0-101.0); MEAN PLATELET VOLUME 11.6 fl (7.4-10.4); MONOCYTE # 1.1 10^3/ul (0.3-0.9); MONOCYTES % 18.3 % (0.0-11.0); NEUTROPHIL # 3.4 10^3/ul (1.6-7.5); NEUTROPHILS % 58.9 % (39.0-77.0); PLATELET COUNT 238 10^3/UL (140-415); RED BLOOD COUNT 3.12 10^6/ul (4.20-5.40); RED CELL DISTRIBUTION WIDTH 17.5 % (11.5-14.5)
[2018-01-18 07:31] LABS: WHITE BLOOD COUNT 5.8 10^3/ul (4.8-10.8)
[2018-01-18 07:59] LABS: ALANINE AMINOTRANSFERASE 25 IU/L (13-69); ALBUMIN 2.8 g/dl (3.3-4.9); ALKALINE PHOSPHATASE 83 IU/L (42-121); ANION GAP 12 (8-16); ASPARTATE AMINO TRANSFERASE 22 IU/L (15-46); BILIRUBIN,INDIRECT 0.4 mg/dl (0-1.1); BILIRUBIN,TOTAL 0.4 mg/dl (0.2-1.3); BLOOD UREA NITROGEN 17 mg/dl (7-20); CALCIUM 8.7 mg/dl (8.4-10.2); CARBON DIOXIDE 36 mmol/L (21-31); CHLORIDE 101 mmol/L (97-110); CREATININE 0.41 mg/dl (0.44-1.00); GLUCOSE 132 mg/dl (70-220); POTASSIUM 4.1 mmol/L (3.5-5.1); SODIUM 145 mmol/L (135-144); TOTAL PROTEIN 6.3 g/dl (6.1-8.1)
[2018-01-18 08:11] LABS: ANION GAP 13 (8-16); BLOOD UREA NITROGEN 17 mg/dl (7-20); CALCIUM 8.5 mg/dl (8.4-10.2); CARBON DIOXIDE 37 mmol/L (21-31); CHLORIDE 101 mmol/L (97-110); CREATININE 0.47 mg/dl (0.44-1.00); GLUCOSE 133 mg/dl (70-220); POTASSIUM 3.8 mmol/L (3.5-5.1); SODIUM 147 mmol/L (135-144)
[2018-01-18] MEDS: INSULIN ASPART [NOVOLOG] 3 ML PEN SC ×4 (08:18→21:00)
[2018-01-18] MEDS: FUROSEMIDE 20 MG INJ IV (08:27)
[2018-01-18] MEDS: VITAMIN A & D 5 GM OINT PACKET TOP ×2 (08:28→20:10)
[2018-01-18] MEDS: NYSTATIN 30 GM POWDER BTL TOP ×2 (09:09→20:10)
[2018-01-18] MEDS: morphine (ER) 15 MG TAB PO ×2 (10:39→20:09)
[2018-01-19] MEDS: LEVALBUTEROL (NEB) 0.63 MG/3 ML AMP HHN ×7 (01:12→23:51)
[2018-01-19] MEDS: HYDROmorphONE 0.5 MG/0.5 ML SYG IV ×6 (01:36→21:42)
[2018-01-19] MEDS: HEPARIN 5,000 UNIT/0.5 ML VIAL SC ×3 (05:28→21:36)
[2018-01-19 05:34] LABS: ADD MAN DIFF? NO
[2018-01-19 05:39] LABS: WHITE BLOOD COUNT 6.9 10^3/ul (4.8-10.8)
[2018-01-19 05:40] LABS: BASOPHILS % 0.6 % (0.0-2.0); EOSINOPHILS % 0.3 % (0.0-7.0); HEMOGLOBIN 8.8 g/dl (12.0-16.0); LYMPHOCYTES # 1.3 10^3/ul (0.8-2.9); LYMPHOCYTES % 19.6 % (15.0-51.0); MEAN CORPUSCULAR HEMOGLOBIN 27.3 pg (29.0-33.0); MEAN CORPUSCULAR HGB CONC 29.3 g/dl (32.0-37.0); MEAN CORPUSCULAR VOLUME 93.2 fl (82.0-101.0); MEAN PLATELET VOLUME 10.8 fl (7.4-10.4); MONOCYTE # 1.2 10^3/ul (0.3-0.9); MONOCYTES % 17.4 % (0.0-11.0); NEUTROPHIL # 4.2 10^3/ul (1.6-7.5); NEUTROPHILS % 61.2 % (39.0-77.0); PLATELET COUNT 217 10^3/UL (140-415); RED BLOOD COUNT 3.22 10^6/ul (4.20-5.40)
[2018-01-19 05:57] LABS: ANION GAP 11 (8-16); BLOOD UREA NITROGEN 17 mg/dl (7-20); CALCIUM 8.5 mg/dl (8.4-10.2); CARBON DIOXIDE 38 mmol/L (21-31); CHLORIDE 101 mmol/L (97-110); CREATININE 0.51 mg/dl (0.44-1.00); GLUCOSE 126 mg/dl (70-220); SODIUM 146 mmol/L (135-144)
[2018-01-19] MEDS: INSULIN ASPART [NOVOLOG] 3 ML PEN SC ×4 (08:02→20:34)
[2018-01-19] MEDS: morphine (ER) 15 MG TAB PO ×2 (08:15→20:34)
[2018-01-19] MEDS: VITAMIN A & D 5 GM OINT PACKET TOP ×2 (08:17→21:34)
[2018-01-19] MEDS: LEVOTHYROXINE 75 MCG TAB PO (08:17)
[2018-01-19] MEDS: FUROSEMIDE 20 MG INJ IV (08:18)
[2018-01-19] MEDS: NYSTATIN 30 GM POWDER BTL TOP ×2 (09:00→21:34)
[2018-01-20] MEDS: HYDROmorphONE 0.5 MG/0.5 ML SYG IV ×6 (01:34→22:37)
[2018-01-20] MEDS: LEVALBUTEROL (NEB) 0.63 MG/3 ML AMP HHN ×8 (04:04→23:50)
[2018-01-20] MEDS: HEPARIN 5,000 UNIT/0.5 ML VIAL SC ×3 (05:42→21:52)
[2018-01-20] MEDS: LEVOTHYROXINE 75 MCG TAB PO (06:34)
[2018-01-20 07:11] LABS: ADD MAN DIFF? NO
[2018-01-20 07:12] LABS: BASOPHILS % 0.6 % (0.0-2.0); EOSINOPHILS % 0.6 % (0.0-7.0); HEMATOCRIT 28.9 % (37.0-47.0); HEMOGLOBIN 8.6 g/dl (12.0-16.0); LYMPHOCYTES # 1.2 10^3/ul (0.8-2.9); LYMPHOCYTES % 16.8 % (15.0-51.0); MEAN CORPUSCULAR HGB CONC 29.8 g/dl (32.0-37.0); MEAN CORPUSCULAR VOLUME 94.1 fl (82.0-101.0); MEAN PLATELET VOLUME 11.7 fl (7.4-10.4); MONOCYTE # 1.1 10^3/ul (0.3-0.9); MONOCYTES % 15.5 % (0.0-11.0); NEUTROPHIL # 4.5 10^3/ul (1.6-7.5); NEUTROPHILS % 65.9 % (39.0-77.0); PLATELET COUNT 210 10^3/UL (140-415); RED BLOOD COUNT 3.07 10^6/ul (4.20-5.40); RED CELL DISTRIBUTION WIDTH 17.2 % (11.5-14.5)
[2018-01-20 07:12] LABS: WHITE BLOOD COUNT 6.8 10^3/ul (4.8-10.8)
[2018-01-20 07:45] LABS: ANION GAP 11 (8-16); BLOOD UREA NITROGEN 16 mg/dl (7-20); CALCIUM 8.5 mg/dl (8.4-10.2); CARBON DIOXIDE 39 mmol/L (21-31); CHLORIDE 100 mmol/L (97-110); CREATININE 0.49 mg/dl (0.44-1.00); GLUCOSE 122 mg/dl (70-220); POTASSIUM 3.8 mmol/L (3.5-5.1); SODIUM 146 mmol/L (135-144)
[2018-01-20] MEDS: INSULIN ASPART [NOVOLOG] 3 ML PEN SC ×4 (08:09→21:00)
[2018-01-20] MEDS: VITAMIN A & D 5 GM OINT PACKET TOP ×2 (08:25→21:03)
[2018-01-20] MEDS: morphine (ER) 15 MG TAB PO ×2 (08:25→21:03)
[2018-01-20] MEDS: NYSTATIN 30 GM POWDER BTL TOP ×2 (08:25→21:06)
[2018-01-20 12:11] LABS: Allen Test ACCEPTAB; Arterial Base Excess 5.9 mmol/L (-3.0-3); Arterial Blood Gas Oxygen Sat 94.8 mmHG (95.0-98.0); Arterial COHb 0.8 % (0.0-3.0); Arterial Fraction of Oxyhgb 93.8 % (93.0-99.0); Arterial HCO3 32.6 mmol/L (22.0-26.0); Arterial MetHb 0.3 % (0.0-1.5); Arterial Total Hemglobin 11.5 g/dl (12.0-18.0); Arterial pCO2 57.7 mmhg (35-45); MODE NASAL CANNULA; Site Left Radial
[2018-01-21] MEDS: HYDROmorphONE 0.5 MG/0.5 ML SYG IV ×5 (02:27→21:38)
[2018-01-21] MEDS: LEVALBUTEROL (NEB) 0.63 MG/3 ML AMP HHN ×9 (03:11→23:15)
[2018-01-21] MEDS: HEPARIN 5,000 UNIT/0.5 ML VIAL SC ×3 (06:00→21:40)
[2018-01-21] MEDS: LEVOTHYROXINE 75 MCG TAB PO (06:18)
[2018-01-21] MEDS: INSULIN ASPART [NOVOLOG] 3 ML PEN SC ×4 (08:39→20:52)
[2018-01-21] MEDS: VITAMIN A & D 5 GM OINT PACKET TOP ×2 (08:39→20:49)
[2018-01-21] MEDS: NYSTATIN 30 GM POWDER BTL TOP ×2 (08:40→20:50)
[2018-01-21] MEDS: morphine (ER) 15 MG TAB PO ×2 (08:44→20:49)
[2018-01-21] MEDS ORDERED: LEVALBUTEROL (NEB) 0.63 MG/3 ML AMP HHN (09:00)
[2018-01-22] MEDS: LEVALBUTEROL (NEB) 0.63 MG/3 ML AMP HHN ×7 (00:59→23:14)
[2018-01-22] MEDS: HYDROmorphONE 0.5 MG/0.5 ML SYG IV ×6 (01:24→21:51)
[2018-01-22] MEDS: HEPARIN 5,000 UNIT/0.5 ML VIAL SC ×3 (05:11→21:30)
[2018-01-22] MEDS: LEVOTHYROXINE 75 MCG TAB PO (06:25)
[2018-01-22] MEDS: VITAMIN A & D 5 GM OINT PACKET TOP ×2 (08:02→21:26)
[2018-01-22] MEDS: morphine (ER) 15 MG TAB PO ×2 (08:02→20:53)
[2018-01-22] MEDS: INSULIN ASPART [NOVOLOG] 3 ML PEN SC ×4 (08:05→21:00)
[2018-01-22] MEDS: NYSTATIN 30 GM POWDER BTL TOP ×2 (08:05→21:26)
[2018-01-22] MEDS: LORAZEPAM 2 MG INJ IV (14:15)
[2018-01-22] MEDS: LIDOCAINE 1% (MPF) 5 ML VIAL SC (17:05)
[2018-01-22] MEDS: SOD CHLORIDE 0.9% 100 ML (17:51)
[2018-01-23] MEDS: LEVALBUTEROL (NEB) 0.63 MG/3 ML AMP HHN ×9 (00:49→23:29)
[2018-01-23] MEDS: HYDROmorphONE 0.5 MG/0.5 ML SYG IV ×5 (01:43→21:31)
[2018-01-23 05:37] LABS: ADD MAN DIFF? NO
[2018-01-23] MEDS: LEVOTHYROXINE 75 MCG TAB PO (05:37)
[2018-01-23] MEDS: HEPARIN 5,000 UNIT/0.5 ML VIAL SC ×3 (05:39→21:34)
[2018-01-23 05:49] LABS: ABNORMAL IP MESSAGE 1; BASOPHIL # 0.1 10^3/ul (0.0-0.1); BASOPHILS % 0.6 % (0.0-2.0); EOSINOPHILS # 0.1 10^3/ul (0.0-0.5); EOSINOPHILS % 0.7 % (0.0-7.0); HEMATOCRIT 29.3 % (37.0-47.0); HEMOGLOBIN 8.4 g/dl (12.0-16.0); LYMPHOCYTES # 1.2 10^3/ul (0.8-2.9); LYMPHOCYTES % 14.3 % (15.0-51.0); MEAN CORPUSCULAR HEMOGLOBIN 27.3 pg (29.0-33.0); MEAN CORPUSCULAR HGB CONC 28.7 g/dl (32.0-37.0); MEAN CORPUSCULAR VOLUME 95.1 fl (82.0-101.0); MEAN PLATELET VOLUME 11.7 fl (7.4-10.4); MONOCYTE # 1.1 10^3/ul (0.3-0.9); MONOCYTES % 13.2 % (0.0-11.0); NEUTROPHIL # 5.8 10^3/ul (1.6-7.5); NEUTROPHILS % 70.4 % (39.0-77.0); PLATELET COUNT 182 10^3/UL (140-415); RED BLOOD COUNT 3.08 10^6/ul (4.20-5.40); RED CELL DISTRIBUTION WIDTH 17.6 % (11.5-14.5)
[2018-01-23 05:49] LABS: WHITE BLOOD COUNT 8.3 10^3/ul (4.8-10.8)
[2018-01-23 06:06] LABS: BLOOD UREA NITROGEN 15 mg/dl (7-20); CALCIUM 8.7 mg/dl (8.4-10.2); CHLORIDE 99 mmol/L (97-110); CREATININE 0.48 mg/dl (0.44-1.00); GLUCOSE 128 mg/dl (70-220); POTASSIUM 3.8 mmol/L (3.5-5.1); SODIUM 146 mmol/L (135-144)
[2018-01-23 06:07] LABS: POSITIVE DIFF @See below
[2018-01-23 06:14] LABS: ANION GAP 12 (8-16)
[2018-01-23 06:26] LABS: CARBON DIOXIDE 39 mmol/L (21-31)
[2018-01-23] MEDS: INSULIN ASPART [NOVOLOG] 3 ML PEN SC ×4 (07:50→21:00)
[2018-01-23] MEDS: NYSTATIN 30 GM POWDER BTL TOP ×2 (08:48→21:35)
[2018-01-23] MEDS: VITAMIN A & D 5 GM OINT PACKET TOP ×2 (08:49→20:38)
[2018-01-23] MEDS: morphine (ER) 15 MG TAB PO ×2 (08:49→20:38)
[2018-01-23] MEDS: LORAZEPAM 2 MG INJ IV (11:05)
[2018-01-23] MEDS: ONDANSETRON INJ 16 MG, DEXAMETHASONE 10 MG/ML 10 MG in DEXTROSE 5% 50 ML IVPB (23:52)
[2018-01-23] MEDS: DIPHENHYDRAMINE 50 MG INJ IV (23:52)
[2018-01-24] MEDS: LEVALBUTEROL (NEB) 0.63 MG/3 ML AMP HHN ×7 (01:07→21:31)
[2018-01-24] MEDS: DOXORUBICIN IV (01:11)
[2018-01-24] MEDS: SOD CHLORIDE 0.9% IV (01:11)
[2018-01-24] MEDS: SOD CHLORIDE 0.9% IVPB (03:28)
[2018-01-24] MEDS: [UNRECOGNIZED DRUG - OTHER] IVPB (03:28)
[2018-01-24] MEDS: HEPARIN 5,000 UNIT/0.5 ML VIAL SC ×3 (05:19→21:00)
[2018-01-24] MEDS: HYDROmorphONE 0.5 MG/0.5 ML SYG IV ×4 (05:19→23:07)
[2018-01-24] MEDS: LEVOTHYROXINE 75 MCG TAB PO (05:23)
[2018-01-24] MEDS: LORAZEPAM 2 MG INJ IV ×3 (08:04→20:03)
[2018-01-24] MEDS: VITAMIN A & D 5 GM OINT PACKET TOP ×2 (08:55→20:58)
[2018-01-24] MEDS: NYSTATIN 30 GM POWDER BTL TOP ×2 (08:56→20:58)
[2018-01-24] MEDS: morphine (ER) 15 MG TAB PO ×2 (08:57→20:57)
[2018-01-24] MEDS: INSULIN ASPART [NOVOLOG] 3 ML PEN SC ×4 (09:03→21:00)
[2018-01-24] MEDS ORDERED: ALBUTEROL HFA 8 GM INHALER INH (13:00)
[2018-01-24 23:55] LABS: AADO2 Arterial 517.6 mmHg (7.0-24.0); Allen Test ACCEPTAB; Arterial Base Excess 8.3 mmol/L (-3.0-3); Arterial Blood Gas Oxygen Sat 96.8 mmHG (95.0-98.0); Arterial COHb 0.3 % (0.0-3.0); Arterial Fraction of Oxyhgb 96.1 % (93.0-99.0); Arterial HCO3 37.9 mmol/L (22.0-26.0); Arterial MetHb 0.4 % (0.0-1.5); Arterial pCO2 90.3 mmhg (35-45); MODE MASK - NRB; Site Left Radial
[2018-01-25] MEDS: LEVALBUTEROL (NEB) 0.63 MG/3 ML AMP HHN ×6 (00:24→21:13)
[2018-01-25] MEDS: LORAZEPAM 2 MG INJ IV ×3 (00:34→22:50)
[2018-01-25 01:25] LABS: ADD MAN DIFF? NO
[2018-01-25 01:27] LABS: WHITE BLOOD COUNT 10.1 10^3/ul (4.8-10.8)
[2018-01-25 01:27] LABS: ABNORMAL IP MESSAGE 1; BASOPHILS % 0.4 % (0.0-2.0); EOSINOPHILS % 0.2 % (0.0-7.0); HEMATOCRIT 28.7 % (37.0-47.0); HEMOGLOBIN 8.3 g/dl (12.0-16.0); LYMPHOCYTES % 9.8 % (15.0-51.0); MEAN CORPUSCULAR HEMOGLOBIN 28.1 pg (29.0-33.0); MEAN CORPUSCULAR HGB CONC 28.9 g/dl (32.0-37.0); MEAN CORPUSCULAR VOLUME 97.3 fl (82.0-101.0); MEAN PLATELET VOLUME 11.2 fl (7.4-10.4); MONOCYTE # 1.4 10^3/ul (0.3-0.9); MONOCYTES % 13.5 % (0.0-11.0); NEUTROPHIL # 7.6 10^3/ul (1.6-7.5); NEUTROPHILS % 75.4 % (39.0-77.0); PLATELET COUNT 177 10^3/UL (140-415); RED BLOOD COUNT 2.95 10^6/ul (4.20-5.40); RED CELL DISTRIBUTION WIDTH 17.4 % (11.5-14.5)
[2018-01-25 01:31] LABS: POSITIVE DIFF @See below
[2018-01-25 01:44] LABS: LACTIC ACID 1.6 mmol/L (0.5-2.0)
[2018-01-25 02:14] LABS: AADO2 Arterial 204.4 mmHg (7.0-24.0); Allen Test ACCEPTAB; Arterial Base Excess 8.5 mmol/L (-3.0-3); Arterial Blood Gas Oxygen Sat 98.7 mmHG (95.0-98.0); Arterial COHb 0.2 % (0.0-3.0); Arterial Fraction of Oxyhgb 98.2 % (93.0-99.0); Arterial HCO3 36.8 mmol/L (22.0-26.0); Arterial MetHb 0.3 % (0.0-1.5); Arterial Total Hemglobin 9.5 g/dl (12.0-18.0); Arterial pCO2 76.9 mmhg (35-45); Blood Gas IEPAP 15/5; MODE MASK - BIPAP; Site Left Radial
[2018-01-25] MEDS: HYDROmorphONE 0.5 MG/0.5 ML SYG IV ×4 (04:50→20:31)
[2018-01-25] MEDS: HEPARIN 5,000 UNIT/0.5 ML VIAL SC ×3 (06:33→21:43)
[2018-01-25 06:42] LABS: BLOOD UREA NITROGEN 27 mg/dl (7-20); CALCIUM 8.6 mg/dl (8.4-10.2); CHLORIDE 99 mmol/L (97-110); CREATININE 0.76 mg/dl (0.44-1.00); GLUCOSE 137 mg/dl (70-220); POTASSIUM 4.8 mmol/L (3.5-5.1); SODIUM 145 mmol/L (135-144)
[2018-01-25 06:50] LABS: ANION GAP 13 (8-16)
[2018-01-25 06:55] LABS: CARBON DIOXIDE 38 mmol/L (21-31)
[2018-01-25] MEDS: morphine (ER) 15 MG TAB PO ×2 (09:00→21:00)
[2018-01-25] MEDS: INSULIN ASPART [NOVOLOG] 3 ML PEN SC ×4 (09:00→21:00)
[2018-01-25] MEDS: VITAMIN A & D 5 GM OINT PACKET TOP ×2 (09:55→20:31)
[2018-01-25] MEDS: NYSTATIN 30 GM POWDER BTL TOP ×2 (09:55→20:31)
[2018-01-25] MEDS: LEVOTHYROXINE 100 MCG VIAL IV (09:56)
[2018-01-25] MEDS ORDERED: PENDING SANTYL ORDER FOR WOUND CARE XX (11:30)
[2018-01-25 13:31] LABS: Allen Test ACCEPTAB; Arterial Base Excess 9.3 mmol/L (-3.0-3); Arterial COHb 0.4 % (0.0-3.0); Arterial Fraction of Oxyhgb 95.2 % (93.0-99.0); Arterial HCO3 38.6 mmol/L (22.0-26.0); Arterial MetHb 0.4 % (0.0-1.5); Arterial Total Hemglobin 9.4 g/dl (12.0-18.0); Arterial pCO2 89.7 mmhg (35-45); Blood Gas IEPAP 20/8; MODE MASK - BIPAP; Site Right Radial
[2018-01-25] MEDS: DEXTROSE 5%-0.45% NACL 1,000 ML IV (15:32)
[2018-01-26] MEDS: LEVALBUTEROL (NEB) 0.63 MG/3 ML AMP HHN ×5 (00:23→21:08)
[2018-01-26] MEDS: HYDROmorphONE 0.5 MG/0.5 ML SYG IV ×7 (00:38→23:53)
[2018-01-26] MEDS: INSULIN ASPART [NOVOLOG] 3 ML PEN SC ×6 (00:41→21:00)
[2018-01-26] MEDS: LORAZEPAM 2 MG INJ IV ×4 (01:27→20:18)
[2018-01-26] MEDS: LEVOTHYROXINE 100 MCG VIAL IV (05:11)
[2018-01-26] MEDS: HEPARIN 5,000 UNIT/0.5 ML VIAL SC ×3 (05:14→21:41)
[2018-01-26 05:44] LABS: ADD MAN DIFF? NO
[2018-01-26 05:47] LABS: ABNORMAL IP MESSAGE 1; BASOPHILS % 0.3 % (0.0-2.0); EOSINOPHILS % 0.1 % (0.0-7.0); HEMATOCRIT 26.8 % (37.0-47.0); HEMOGLOBIN 7.7 g/dl (12.0-16.0); LYMPHOCYTES # 0.6 10^3/ul (0.8-2.9); MEAN CORPUSCULAR HEMOGLOBIN 27.8 pg (29.0-33.0); MEAN CORPUSCULAR HGB CONC 28.7 g/dl (32.0-37.0); MEAN CORPUSCULAR VOLUME 96.8 fl (82.0-101.0); MEAN PLATELET VOLUME 11.5 fl (7.4-10.4); MONOCYTE # 0.6 10^3/ul (0.3-0.9); MONOCYTES % 8.3 % (0.0-11.0); NEUTROPHIL # 5.8 10^3/ul (1.6-7.5); NEUTROPHILS % 82.7 % (39.0-77.0); PLATELET COUNT 146 10^3/UL (140-415); RED BLOOD COUNT 2.77 10^6/ul (4.20-5.40); RED CELL DISTRIBUTION WIDTH 17.5 % (11.5-14.5)
[2018-01-26 06:06] LABS: ANION GAP 11 (8-16); BLOOD UREA NITROGEN 42 mg/dl (7-20); CALCIUM 8.5 mg/dl (8.4-10.2); CARBON DIOXIDE 38 mmol/L (21-31); CHLORIDE 100 mmol/L (97-110); GLUCOSE 135 mg/dl (70-220); MAGNESIUM 1.8 mg/dl (1.7-2.5); PHOSPHORUS 4.9 mg/dl (2.5-4.9); POTASSIUM 4.8 mmol/L (3.5-5.1); SODIUM 144 mmol/L (135-144)
[2018-01-26 06:17] LABS: POSITIVE DIFF @See below
[2018-01-26] MEDS: DEXTROSE 5%-0.45% NACL 1,000 ML IV (08:16)
[2018-01-26] MEDS: VITAMIN A & D 5 GM OINT PACKET TOP ×2 (08:17→21:32)
[2018-01-26] MEDS: NYSTATIN 30 GM POWDER BTL TOP ×2 (08:21→21:32)
[2018-01-26 08:32] LABS: AADO2 Arterial 68.2 mmHg (7.0-24.0); Allen Test ACCEPTAB; Arterial Base Excess 8.8 mmol/L (-3.0-3); Arterial Blood Gas Oxygen Sat 98.7 mmHG (95.0-98.0); Arterial COHb 0.6 % (0.0-3.0); Arterial Fraction of Oxyhgb 97.8 % (93.0-99.0); Arterial MetHb 0.3 % (0.0-1.5); Arterial pCO2 67.5 mmhg (35-45); Blood Gas IEPAP 20/8; MODE MASK - BIPAP; Site Right Radial
[2018-01-26] MEDS: morphine (ER) 15 MG TAB PO ×2 (09:00→21:00)
[2018-01-26] MEDS ORDERED: ALBUMIN HUMAN 25% 100 ML (11:11)
[2018-01-26] MEDS: ALBUMIN HUMAN 25% 100 ML IV (11:14)
[2018-01-26] MEDS ORDERED: NORepinephrine 8MG/250 ML (PMX 250 ML (11:49)
[2018-01-26] MEDS: NORepinephrine 16 MG in SOD CHLORIDE 0.9% 484 ML IV (20:16)
[2018-01-27] MEDS: INSULIN ASPART [NOVOLOG] 3 ML PEN SC ×4 (01:00→12:59)
[2018-01-27] MEDS: LEVALBUTEROL (NEB) 0.63 MG/3 ML AMP HHN ×4 (01:25→13:48)
[2018-01-27] MEDS: HYDROmorphONE 0.5 MG/0.5 ML SYG IV ×7 (01:40→13:08)
[2018-01-27] MEDS: DEXTROSE 5%-0.45% NACL 1,000 ML IV (01:40)
[2018-01-27] MEDS: METOPROLOL 5 MG INJ IV (04:03)
[2018-01-27] MEDS: LEVOTHYROXINE 100 MCG VIAL IV (05:46)
[2018-01-27 05:47] LABS: ADD MAN DIFF? NO
[2018-01-27 05:59] LABS: BASOPHILS % 0.4 % (0.0-2.0); EOSINOPHILS % 0.3 % (0.0-7.0); HEMATOCRIT 28.3 % (37.0-47.0); HEMOGLOBIN 8.3 g/dl (12.0-16.0); LYMPHOCYTES # 0.9 10^3/ul (0.8-2.9); LYMPHOCYTES % 12.8 % (15.0-51.0); MEAN CORPUSCULAR HEMOGLOBIN 28.1 pg (29.0-33.0); MEAN CORPUSCULAR HGB CONC 29.3 g/dl (32.0-37.0); MEAN CORPUSCULAR VOLUME 95.9 fl (82.0-101.0); MEAN PLATELET VOLUME 11.9 fl (7.4-10.4); MONOCYTE # 0.2 10^3/ul (0.3-0.9); MONOCYTES % 2.6 % (0.0-11.0); NEUTROPHILS % 83.3 % (39.0-77.0); PLATELET COUNT 168 10^3/UL (140-415); RED BLOOD COUNT 2.95 10^6/ul (4.20-5.40); RED CELL DISTRIBUTION WIDTH 17.8 % (11.5-14.5)
[2018-01-27 05:59] LABS: WHITE BLOOD COUNT 7.2 10^3/ul (4.8-10.8)
[2018-01-27] MEDS: HEPARIN 5,000 UNIT/0.5 ML VIAL SC ×2 (05:59→13:23)
[2018-01-27 06:41] LABS: ANION GAP 15 (8-16); BLOOD UREA NITROGEN 52 mg/dl (7-20); CALCIUM 8.9 mg/dl (8.4-10.2); CARBON DIOXIDE 35 mmol/L (21-31); CHLORIDE 100 mmol/L (97-110); CREATININE 0.91 mg/dl (0.44-1.00); GLUCOSE 126 mg/dl (70-220); POTASSIUM 4.9 mmol/L (3.5-5.1); SODIUM 145 mmol/L (135-144)
[2018-01-27] MEDS: LORAZEPAM 2 MG INJ IV ×4 (07:28→21:35)
[2018-01-27] MEDS: morphine (ER) 15 MG TAB PO (08:24)
[2018-01-27] MEDS: NYSTATIN 30 GM POWDER BTL TOP ×2 (08:37→20:31)
[2018-01-27] MEDS: VITAMIN A & D 5 GM OINT PACKET TOP ×3 (08:37→20:31)
[2018-01-27] MEDS ORDERED: ARTIFICIAL TEARS 15 ML OPH BOTH EYES (15:00)
[2018-01-27] MEDS ORDERED: DIMETHICONE STICK TOP (15:00)
[2018-01-27] MEDS: ACETAMINOPHEN 650 MG SUPP PR ×2 (15:30→21:29)
[2018-01-27] MEDS ORDERED: LORAZEPAM 2 MG INJ IV (15:30)
[2018-01-27] MEDS ORDERED: BISACODYL 10 MG SUPP PR (15:30)
[2018-01-27] MEDS ORDERED: ATROPINE 1% 5 ML OPH SL (15:30)
[2018-01-27] MEDS ORDERED: ONDANSETRON 4 MG INJ IV (15:30)
[2018-01-27] MEDS: morphine (DRIP) 100 MG/100 ML 100 ML IV (15:44)
[2018-01-27] MEDS: SCOPOLAMINE 1.5 MG PATCH TRANSDERM (17:34)
[2018-01-27] MEDS: ALBUTEROL/IPRATROPIUM (NEB) 3 ML AMP HHN (21:57)
[2018-01-28] MEDS: ALBUTEROL/IPRATROPIUM (NEB) 3 ML AMP HHN (01:41)
[2018-01-28] MEDS: ACETAMINOPHEN 650 MG SUPP PR ×4 (03:30→21:30)
[2018-01-28] MEDS: LORAZEPAM 2 MG INJ IV ×4 (04:23→22:33)
[2018-01-28] MEDS: morphine (DRIP) 100 MG/100 ML 100 ML IV ×2 (04:42→14:58)
[2018-01-28] MEDS: NYSTATIN 30 GM POWDER BTL TOP ×2 (09:00→21:00)
[2018-01-28] MEDS: VITAMIN A & D 5 GM OINT PACKET TOP ×4 (09:00→21:00)
[2018-01-28 14:52] LABS: PROCALCITONIN 0.41 ng/mL (<0.10)
[2018-01-29] MEDS: morphine (DRIP) 100 MG/100 ML 100 ML IV (01:24)
[2018-01-29] MEDS: ACETAMINOPHEN 650 MG SUPP PR (03:30)
[2018-01-29] MEDS: LORAZEPAM 2 MG INJ IV (04:07)
== END 2018-01-29 09:15 | disposition expired | DRG 871 ==
LOC: MS1 01-22 15:03 → ICU 01-25 00:07 → MS1 01-28 08:20 → MS4 18:53 → ICU 01-07 11:34 → E/R 14:15 → TEL 01-09 16:28 → MS2 01-18 22:18
PROC: 30233N1 Transfusion of Nonautologous Red Blood Cells into Peripheral Vein, Percutaneous Approach (ICD-10-PCS; 2018-01-08)
PROC: 02HV33Z Insertion of Infusion Device into Superior Vena Cava, Percutaneous Approach (ICD-10-PCS; principal; 2018-01-22)
PROC: 5A09457 Assistance with Respiratory Ventilation, 24-96 Consecutive Hours, Continuous Positive Airway Pressure (ICD-10-PCS; 2018-01-25)
DX: A41.9 Sepsis, unspecified organism (principal); E88.3 Tumor lysis syndrome; C78.01 Secondary malignant neoplasm of right lung; J18.9 Pneumonia, unspecified organism; J96.01 Acute respiratory failure with hypoxia; J96.02 Acute respiratory failure with hypercapnia; R18.8 Other ascites; D70.1 Agranulocytosis secondary to cancer chemotherapy; C55 Malignant neoplasm of uterus, part unspecified; Z68.42 Body mass index [BMI] 45.0-49.9, adult; N13.2 Hydronephrosis with renal and ureteral calculous obstruction; N39.0 Urinary tract infection, site not specified; N17.9 Acute kidney failure, unspecified; E87.5 Hyperkalemia; D63.0 Anemia in neoplastic disease; E66.9 Obesity, unspecified; E03.9 Hypothyroidism, unspecified; E11.9 Type 2 diabetes mellitus without complications; E79.0 Hyperuricemia without signs of inflammatory arthritis and tophaceous disease; M79.89 Other specified soft tissue disorders; N28.1 Cyst of kidney, acquired; G47.33 Obstructive sleep apnea (adult) (pediatric); B96.20 Unspecified Escherichia coli [E. coli] as the cause of diseases classified elsewhere; K43.9 Ventral hernia without obstruction or gangrene; M51.36 Other intervertebral disc degeneration, lumbar region; G47.00 Insomnia, unspecified; R65.20 Severe sepsis without septic shock; R60.1 Generalized edema; I95.2 Hypotension due to drugs; Z66 Do not resuscitate; Z90.710 Acquired absence of both cervix and uterus; Z88.1 Allergy status to other antibiotic agents; Z92.21 Personal history of antineoplastic chemotherapy
CPT/HCPCS: 36415; 36430; 36569; 36600; 71045; 71275; 74176; 76604; 76775; 76937; 80048; 80053; 80202; 81001; 82550; 82803; 82962; 83036; 83605; 83735; 83880; 84100; 84132; 84145; 84300; 84484; 84560; 85025; 85378; 85610; 85730; 86850; 86900; 86901; 86920; 87040; 87070; 87081; 87086; 87400; 92526; 92610; 93005; 93306; 93970; 93971; 94640; 94660; 94664; 96372; 96374; 96375; 96376; 97110; 97116; 97162; 97530; 99285-25; J0885; J1940